=== PATIENT | male | born 1995 | race Caucasian/White ===

== ENCOUNTER 2018-02-10 17:59 | Emergency (ER) | payer OTHER ==
[~2018-02-10] VITALS: Ht 172.7 cm; Wt 72.6 kg
[2018-02-10 18:03] VITALS: BP 113/69
--- NOTE | 2018-02-10 18:07 | NUR ---
PT AMBULATES TO BED 2
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
--- NOTE | 2018-02-10 19:01 | NUR ---
Patient being evaluated by physician at bedside.
--- NOTE | 2018-02-10 19:28 | NUR ---
SWABS DONE AND GIVEN TO LAB
[2018-02-10 20:03] VITALS: BP 115/72
== END 2018-02-10 20:03 | disposition home or self-care (01) ==
LOC: MED 17:59
DX: J03.90 Acute tonsillitis, unspecified (principal)
CPT/HCPCS: 87081; 99284

== ENCOUNTER 2018-05-13 04:11 | Emergency (ER) | payer OTHER ==
[~2018-05-13] VITALS: Ht 172.7 cm; Wt 70.3 kg
[2018-05-13 04:18] VITALS: BP 141/73
--- NOTE | 2018-05-13 04:18 | NUR ---
TO BED # 9 AMBULATORY, REPORT GIVEN TO LIO VALDEZ
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
[2018-05-13 04:34] LABS: APPEARANCE,URINE CLEAR (CLEAR); BILIRUBIN,URINE NEGATIVE (NEGATIVE); BLOOD, URINE NEGATIVE (NEGATIVE); COLOR,URINE YELLOW (YELLOW); LEUKOCYTE ESTERASE ,URINE NEGATIVE (NEGATIVE); NITRITE, URINE NEGATIVE (NEGATIVE); UGLUCOSE NEGATIVE (NEGATIVE)
[2018-05-13 04:48] LABS: RBC,URINE 0-5 (RARE) /HPF (0-5); WBC,URINE 0-5 (RARE) /HPF (0-5)
--- NOTE | 2018-05-13 04:55 | NUR ---
Patient discharged with v/s stable. Written and verbal after care instructions given and explained. Patient verbalized understanding. Ambulatory with steady gait. All questions addressed prior to discharge. Advised to follow up with PMD.
[2018-05-13 04:56] VITALS: BP 141/73
== END 2018-05-13 04:55 | disposition home or self-care (01) ==
LOC: MED 04:11
DX: S30.812A Abrasion of penis, initial encounter (principal); X58.XXXA Exposure to other specified factors, initial encounter; Y93.89 Activity, other specified; Y92.89 Other specified places as the place of occurrence of the external cause; Y99.8 Other external cause status
CPT/HCPCS: 81001; 87086; 99283